=== PATIENT | female | born 1990 | race African-American/Black ===

== ENCOUNTER 2017-09-29 12:05 | Emergency (ER) | payer MEDICAID, MEDICARE ==
[~2017-09-29] VITALS: Ht 162.6 cm; Wt 48.0 kg
[2017-09-29] MEDS ORDERED: SODIUM CHLORIDE 0.9% 1,000 ML IV ONE (12:52)
[2017-09-29 13:32] LABS: BASOPHILS % 0.5 % (0.0-2.0); EOSINOPHILS % 0.5 % (0.0-5.0); HEMATOCRIT. 31.7 % (36.0-48.0); HEMOGLOBIN. 10.8 g/dL (12.0-16.0); LYMPHOCYTES % 18.4 % (20.0-50.0); MEAN CORPUSCULAR HEMOGLOBIN 29.3 pg (28.0-32.0); MEAN CORPUSCULAR VOLUME 85.8 fL (81.0-99.0); MEAN PLATELET VOLUME 8.6 fl (7.4-10.4); NEUTROPHILS % 73.6 % (40.0-76.0); PLATELET 203 x1000/uL (130-400); RED BLOOD CELL COUNT 3.69 mill/uL (4.2-5.4); RED CELL DISTRIBUTION WIDTH 13.5 % (11.6-14.6)
[2017-09-29 13:33] LABS: CLARITY URINE CLOUDY (CLEAR); COLOR URINE YELLOW (YELLOW); KETONES URINE NEGATIVE (NEGATIVE); LEUKOCYTE ESTERASE URINE 2+ (NEGATIVE); NITRITE URINE NEGATIVE (NEGATIVE); OCCULT BLOOD URINE NEGATIVE (NEGATIVE); PROTEIN URINE NEGATIVE (NEGATIVE); UROBILINOGEN URINE 0.2 E.U./dL (0.2-1.0)
[2017-09-29 13:37] LABS: CHLORIDE 104 mEq/L (98-107)
[2017-09-29 13:46] LABS: *AMPHETAMINES SCREEN URINE NEGATIVE (NEGATIVE); *BARBITURATES SCREEN URINE NEGATIVE (NEGATIVE); *BENZODIAZEPINES SCREEN URINE NEGATIVE (NEGATIVE); *COCAINE SCREEN URINE NEGATIVE (NEGATIVE)
[2017-09-29 13:47] LABS: CANNABINOID URINE SCREEN NEGATIVE (NEGATIVE); METHADONE URINE SCREEN NEGATIVE (NEGATIVE); OPIATES URINE SCREEN NEGATIVE (NEGATIVE); PHENCYCLIDINE URINE SCREEN NEGATIVE (NEGATIVE)
[2017-09-29 14:03] LABS: B-HCG QUANTITATIVE 17759 mIU/mL (<3)
[2017-09-29 14:11] VITALS: BP 107/71
[2017-09-29] MEDS ORDERED: ACETAMINOPHEN 325MG TABLET PO ONE (15:30)
[2017-09-29] MEDS ORDERED: CEFAZOLIN 1000MG PREMIX 50 ML IV ONE (15:30)
== END 2017-09-29 16:35 | disposition home or self-care (01) ==
LOC: ER 12:45
DX: O23.42 Unspecified infection of urinary tract in pregnancy, second trimester (principal); O99.012 Anemia complicating pregnancy, second trimester; O26.892 Other specified pregnancy related conditions, second trimester; R73.9 Hyperglycemia, unspecified; Z3A.15 15 weeks gestation of pregnancy
CPT/HCPCS: 36415; 76801; 76817; 80053; 80305; 81003; 81025; 84702; 85025; 86850; 86900; 86901; 96365; 99285; J0690; J7030

== ENCOUNTER 2017-12-14 14:46 | Observation (INO) | payer MEDICAID ==
[~2017-12-14] VITALS: Ht 162.6 cm; Wt 52.6 kg
[2017-12-14] MEDS ORDERED: FERR325T23 GT (15:30)
[2017-12-14] MEDS ORDERED: PNV1TABL50 PO (15:31)
[2017-12-14] MEDS ORDERED: FOLI-43 PO (15:32)
[2017-12-14 16:03] LABS: CLARITY URINE CLEAR (CLEAR); COLOR URINE YELLOW (YELLOW); KETONES URINE NEGATIVE (NEGATIVE); LEUKOCYTE ESTERASE URINE NEGATIVE (NEGATIVE); NITRITE URINE NEGATIVE (NEGATIVE); OCCULT BLOOD URINE NEGATIVE (NEGATIVE); PROTEIN URINE NEGATIVE (NEGATIVE); SPECIFIC GRAVITY URINE 1.003 (1.005-1.030); UROBILINOGEN URINE 0.2 E.U./dL (0.2-1.0)
[2017-12-14] MEDS ORDERED: LACTATED RINGERS 1,000 ML IV SCH (16:45)
[2017-12-14] MEDS ORDERED: TERBUTALINE SULFATE 1MG/ML VIAL SUBCUT NR (16:45)
== END 2017-12-14 18:15 | disposition home or self-care (01) ==
LOC: INTOOBSV 14:46 → L&D 14:46
PROVIDERS: ADMIT Specialist; ATTEND Specialist
DX: O26.892 Other specified pregnancy related conditions, second trimester (principal); R10.30 Lower abdominal pain, unspecified; M54.5 Low back pain; Z3A.25 25 weeks gestation of pregnancy
CPT/HCPCS: 81003; 96372; 99281; G0378; J3105; 96360; 96361; 96365; J7120